=== PATIENT | female | born 2005 | race Caucasian/White ===

== ENCOUNTER 2025-03-12 15:19 | Inpatient (IN) | payer OTHER, SELFPAY ==
--- OUTSIDE RECORDS SUMMARY | 2025-03-12 18:34 | XMS_ITS | Clinical Summary ---
Author Organization [facility] Address [address] [place] [address] Care Team Providers Care [employer] Name Role Phone Unavailable Primary Care Provider Unavailabl e Source Comments [facility] [employer],non-owned Affiliates and Associated Physician Practices is amultiple site organization consisting of ambulatory clinics and hospital sitesin [place], [place], [place] and [place]. This disclosure is being madepursuant to the Care Everywhere program and may not contain all information available regarding this patient. 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 Gender Identity Not on file Sexual Orientation Not on file Plan of Treatment Health Maintenance Due Date Last Done Comments HIV SCREENING 01/28/2020 HPV VACCINE (1 - 3-dose series) 01/28/2020 CHLAMYDIA/GONORRHEA SCREENING 2021 MENINGOCOCCAL (Group B) VACC INE SHARED DECISION-MAKING (1 of 2 - Standard) 2021 HEPATITIS C SCREENING 01/23/2023 DTAP/TDAP/TD VACCINES (1 - Tdap) 01/28/2024 HEPATITIS B VACCINE (1 of 3 - 19+ 3-dose series) 01/28/2024 COVID-19 VACCINE (1 - 2023-2 5 season) 2024 DEPRESSION SCREENING 07/29/2024 INFLUENZA VACCINE (#1) 2025 ZOSTER VACCINE (1 of 2) 2055 HIB VACCINE Aged Out No longer eligi ble based on patient's age to complete this topic MENINGOCOCCAL GROUPS A/C/Y/W VACCINE Aged Out No longer eligible b ased on patient's age to complete this topic PNEUMOCOCCAL VACCINE Aged Out No long er eligible based on patient's age to complete this topic Insurance [employer]
--- OUTSIDE RECORDS SUMMARY | 2025-03-12 18:34 | XMS_ITS | Clinical Summary ---
Author Organization [facility] Address [address] [place] [address] Phone Care Team Providers Care Auditing Control Clerk Name Role Phone Unavailable Primary Care Provider Unavailabl e Allergies Active Allergy Reactions Criticality Noted Date Comments Penicillins Other (see Comments) Medications methylphenidate 10 MG PO TABS Take 10 mg by mouth 2 times daily. 1 tab every morning 1 tab at lunchtime Active albendazole 200 MG PO TABS 2 tablets PO x1, then repeat in 2 weeks. 4 Tab 0 3 Active Active Problems No known active problems Immunizations Immunization Administration Dates Next Due PUR DTAP UNDER 7 YRS IM 02/16/2013 PUR MMR SQ 02/16/2013 Family History Medical History Relation Name Comments Sudden Cardiac Neg Hx Sudden Syndrome Neg Hx Social History Tobacco Use Types Packs/Day Years Used Date Smoking Tobacco: Never Tobacco Cessation:Counseling Given: No Comments Unknown Sex and Gender Information Value Date Recorded Sex Assigned at Not on file Legal Sex Female 12:07 AM CDT Gender Identity Not on file Sexual Orientation Not on file Last Filed Vital Signs Vital Sign Reading Time Taken Comments Blood Pressure 80/50 02/16/2013 1:16 PM CDT Pulse 90 02/16/2013 1:16 PM CDT Temperature - - Respiratory Rate - - Oxygen Saturation - - Inhaled Oxygen Concentration - - Weight 28.1 kg (62 lb) 02/16/2013 1:16 PM CDT Height 129.5 cm (4' 3) 02/16/2013 1:16 PM CDT Body Mass Index 16.76 02/16/2013 1:16 PM CDT Plan of Treatment Health Maintenance Due Date Last Done Comments Hepatitis C Virus (HCV) Screening 2005 Human Papillomavirus (HPV) Immunization (1 - 3-dose series) 01/28/2020 Meningococcal B Immunization (1 of 2 - Standard) 2021 Hepatitis B Immunization (1 of 3 - 19+ 3-dose series) 01/28/2024 SARS-COV-2 Immunization (1 - 2023- season) 2024 Influenza Immunization (#1) 2025 Respiratory Syncytial Virus (RSV) Immunization (Adult) (1 - 1-dose 75+ series) 01/28/2080 DTaP/Tdap/Td Immunization Discontinued 02/16/2013 Measles Mumps Rubella (MMR) Immunization Discontinued 02/16/2013 Meningococcal Immunization (ACWY) Aged Out No longer eligible based on patient's age to complete this topic Pneumococcal Immunization Combined Aged Out No longer eligible based on patient's age to complete this topic Rotavirus Immunization Aged Out No lo nger eligible based on patient's age to complete this topic Insurance [employer]
--- OUTSIDE RECORDS SUMMARY | 2025-03-12 18:34 | XMS_ITS | Clinical Summary ---
Author Organization [facility] Address [address] [place] [id number] Care Team Providers Care Remarketing Rep Name Role Phone Sandy Wang MD Primary Care Provider Social History Tobacco Use Types Packs/Day Years Used Date Smoking Tobacco: Never Assessed Comments Unknown Sex and Gender Information Value Date Recorded Sex Assigned at Not on file Legal Sex Female 8:22 PM CDT Gender Identity Not on file Sexual Orientation Not on file Last Filed Vital Signs Vital Sign Reading Time Taken Comments Blood Pressure 90/50 03/16/2018 10:28 AM CDT Pulse 86 03/16/2018 10:28 AM CDT Temperature - - Respiratory Rate - - Oxygen Saturation - - Inhaled Oxygen Concentration - - Weight 47.2 kg (104 lb) 03/16/2018 10:28 AM CDT Height - - Body Mass Index - - Plan of Treatment Health Maintenance Due Date Last Done Comments Annual Physical 01/28/2008 HPV Vaccines (1 - 3-dose series) 01/28/2020 Meningococcal B Vaccine (1 o f 2 - Standard) 2021 Hepatitis C 2023 DTaP, Tdap and Td Vaccines ( 2 - Tdap) 01/28/2024 02/16/2013 Hepatitis B Vaccines (1 of 3 - 19+ 3-dose series) 01/28/2024 COVID-19 Vaccine ( - 2023-2 5 season) 2024 Meningococcal Vaccine Aged Out No mainor pati eligible based on patient's age to complete this topic Pneumococcal Vaccine: Pediat rics (0 to 5 Years) and At-Risk Patients (6 to 49 Years) Aged Out No longer eligi ble based on patient's age to complete this topic RSV Immunizations Under 20 Months Aged Out No longer eligible based on patient's age to complete this topic [facility] Care Teams Remarketing Rep Relationship Specialty Start Date End Date Sandy Wang MD [address] [place] [address] PCP - General FAMILY PRACTICE 03/18/20
--- NOTE | 2025-03-12 18:35 | PM.IMHP ---
H&P: HPI History of Present Illness Date/Time: 03/12/25 18:35 Chief Complaint: Labor at term Narrative: This is a 20-year-old 1 para 0 whose last menstrual period was unknown, EDC is 03/07/2025, confirmed by 9 week ultrasound who presents at 40 and 5 7th weeks gestation active labor she is positive for group B strep she passed her diabetic screen the has otherwise been uncomplicated Review of Systems Review of Systems: All systems reviewed & are unremarkable except as noted in HPI and below PMFSH Family History Family History Father Hypertension Mother Hypertension Social History Social History Substance use: never Spiritual care concerns: No Meds Home Medications and Allergies Home Medications ?Medication ?Instructions ?Recorded ?Confirmed ?Type vits no.130-ferrous fum 1 tablet PO DAILY 02/11/25 02/11/25 History 27 mg iron-folic acid 800 mcg tablet ( Vitamin) Allergies Allergy/AdvReac Type Severity Reaction Status Date / Time Penicillins Allergy Severe HIVES Verified 02/11/25 12:36 sulfamethoxazole Allergy Severe HIVES Verified 02/11/25 12:36 trimethoprim Allergy Severe HIVES Verified 02/11/25 12:36 Exam Const: General: cooperative, healthy appearing and comfortable Nutritional Appearance: average body habitus Orientation/consciousness: oriented to person, oriented to place and oriented to time HENMT: Head: normal to inspection Resp: Effort & Inspection: normal respiratory effort Cardio: Rate: regular rate Rhythm: regular rhythm Heart sounds: S1 normal heart sound present and S2 normal heart sound present GI: Inspection: normal to inspection (Soft gravid uterus) : Speculum Exam - Cervix: normal appearance of the cervix (Cervix 1.5/75/2. FHTs reassuring.) Assessment and Plan Assessment and plan (1) Term : Code(s): Z34.90 - Encounter for supervision of normal , unspecified, unspecified trimester Status: Acute (2) Positive testing for group B Streptococcus: Code(s): B95.1 - Streptococcus, group B, as the cause of diseases classified elsewhere Status: Acute Plan Spontaneous vaginal delivery expected. She is an epidural candidate. Were on low-dose Pitocin through the night and treat her group B strep
[2025-03-12 19:14] LABS: Hematocrit 38.5 % (37.0-47.0); Hemoglobin 12.8 g/dL (12.0-15.0); Immature Granulocyte Percent A 0.7 % (0-0.5); Lymphocytes Absolute Auto 2.35 K/mm3 (0.9-3.2); Mean Corpuscular HGB Conc 33.2 g/dl (32-36); Mean Corpuscular Hemoglobin 30.8 pg (26-34); Mean Corpuscular Volume 92.8 fl (80-100); Nucleated Red Blood Cells Absolute Auto 0.000 K/mm3 (0.0-0.012); Nucleated Red Blood Cells Perc 0.0 % (0.0-0.2); Platelet Count Result 231 k/mm3 (150-375); Red Blood Count 4.15 M/mm3 (4.2-5.4); White Blood Count 13.4 K/mm3 (4.5-10.0)
[2025-03-12 20:16] LABS: Syphilis IgG/IgM Antibody Non-Reactive (Nonreactive)
[2025-03-12 21:00] VITALS: TEMP 36.9
[2025-03-12] MEDS: LACTATED RINGERS 1,000 ML 125 ML IV CONT (21:02)
[2025-03-12] MEDS: CLINDAMYCIN 900 MG/D5W 50 ML 900 MG/50 ML PIGGYBACK 50 MG IVPB (21:04)
--- NOTE | 2025-03-12 21:19 | LDADM ---
This patient, Deana Galicia, was admitted to Labor/Delivery/Recovery 105 on 03/12/25 at 15:19. Plans for labor, pain management and were discussed with patient. Patient/family oriented to hospital policies and general routines including ID bracelet, bed and alarms, visiting hours, pain management, procedures, bathroom and other care routines, personal items, smoking policy, room service/diet and guest tray routines, security routines, and visiting hours. Patient/Family are encouraged to report perceived risks to care and to ask questions if they do not understand what they are told or what they should do. See OBIX for further documentation.
--- NOTE | 2025-03-12 22:39 | WPDANESEPP ---
Anes - Eval Pre Procedure Procedure: Labor epidural Date/Time: 03/12/25 22:39 Surgeon: Rupinder Zhou Preop Diagnosis: Abdominal pain with contractions Pre Op Diagnosis: IOL Patient Data Age: 20 Gender: F Height: Weight: Last Vital Signs Temp 98.4 F 03/12/25 21:00 O2 Del Method Room Air 03/12/25 21:16 Allergies Allergy/AdvReac Type Severity Reaction Status Date / Time Penicillins Allergy Severe HIVES Verified 02/11/25 12:36 sulfamethoxazole Allergy Severe HIVES Verified 02/11/25 12:36 trimethoprim Allergy Severe HIVES Verified 02/11/25 12:36 Home Medications ?Medication ?Instructions ?Recorded ?Confirmed ?Type vits no.130-ferrous fum 1 tablet PO DAILY 02/11/25 03/12/25 History 27 mg iron-folic acid 800 mcg tablet ( Vitamin) Laboratory Tests 03/12/25 19:09 WBC 13.4 H K/mm3 (4.5-10.0) RBC 4.15 L M/mm3 (4.2-5.4) Hgb 12.8 g/dL (12.0-15.0) Hct 38.5 % (37.0-47.0) MCV 92.8 fl (80-100) MCH 30.8 pg (26-34) MCHC 33.2 g/dl (32-36) RDW 12.4 % (11.5-14.5) Plt Count 231 k/mm3 (150-375) MPV 9.9 fl (7.4-10.4) Immature Gran % (Auto) 0.7 H % (0-0.5) Neut % (Auto) 73.2 H % (45.5-73.1) Lymph % (Auto) 17.6 L % (18.3-44.2) [place] % (Auto) 7.6 % (2.6-8.5) Eos % (Auto) 0.5 % (0-4.4) Baso % (Auto) 0.4 % (0.2-1.2) Lymph # (Auto) 2.35 K/mm3 (0.9-3.2) [place] # (Auto) 1.0 H K/mm3 (0.1-0.6) Eos # (Auto) 0.1 K/mm3 (0-0.3) Baso # (Auto) 0.1 K/mm3 (0.0-0.1) Abs Immat Gran (auto) 0.09 H K/mm3 (0.00-0.031) Absolute Neuts (auto) 9.8 H K/mm3 (1.3-6.7) Absolute Nucleated RBC 0.000 K/mm3 (0.0-0.012) Nucleated RBC % 0.0 % (0.0-0.2) Syphilis IgG/IgM Ab Non-reactive (Nonreactive) Blood Type A Positive Antibody Screen Negative : gestational age HCG: positive Patient hx anesthesia problems: none Family hx anesthesia problems: none Results Review: All pre-operative results and documents have been reviewed as part of the pre-operative evaluation. [facility] Past Medical History Medical History Anxiety Palpitation ADHD (attention deficit hyperactivity disorder) Term Family History Family History Father Hypertension Mother Hypertension Social History Social History Smoking status: Never smoker Second hand tobacco smoke exposure: No Substance use: never Lack of Transportation: No Lack of Food: Never True Current Housing: I Have Housing Concerned About Future Housing: No Difficulty Paying Gas/Electric Bills: No Difficulty Paying for Meds: No Currently Unemployed: No Education: Bachelor's Degree Difficulty w/ Childcare or Family Care: No Spiritual care concerns: No Exam Day of Procedure 03/12/25 22:39
[2025-03-12] MEDS: OXYTOCIN 30 UNITS/NS 500 ML 30 UNITS/500 ML BAG IV CONT (23:20)
[2025-03-12 23:23] VITALS: BP 131/88; PULSE 91
[2025-03-12 23:30] VITALS: BP 149/103; PULSE 82
[2025-03-12] MEDS: fentaNYL CITRATE INJ (*CRX) 100 MCG/2 ML VIAL 50 MCG IV PUSH (23:32)
[2025-03-12 23:46] VITALS: BP 132/116; PULSE 95
[2025-03-13] VITALS (271 sets, daily range): BP systolic 79–162; BP diastolic 47–108; PULSE 45–128; RESP 16–20; TEMP 36.1–36.7; O2SAT 81–100; BMI 39.3
[2025-03-13] MEDS: LACTATED RINGERS 1,000 ML 125 ML IV CONT ×2 (02:46→12:56)
[2025-03-13] MEDS: CLINDAMYCIN 900 MG/D5W 50 ML 900 MG/50 ML PIGGYBACK 50 MG IVPB ×2 (05:40→12:55)
[2025-03-13] MEDS: ONDANSETRON INJ 4 MG/2 ML VIAL IV PUSH ×2 (05:57→12:55)
--- NOTE | 2025-03-13 06:46 | P.PNOB_ITS ---
OB - PN: Subj Subjective Date/time seen: 03/13/25 06:46 Patient comments: no complaints and pain well controlled baby status: doing well OB - PN: Obj Data Labs 03/12/25 19:09 Labs: Laboratory Results - last 24 hr 03/12/25 19:09 WBC 13.4 H RBC 4.15 L Hgb 12.8 Hct 38.5 MCV 92.8 MCH 30.8 MCHC 33.2 RDW 12.4 Plt Count 231 MPV 9.9 Immature Gran % (Auto) 0.7 H Neut % (Auto) 73.2 H Lymph % (Auto) 17.6 L [place] % (Auto) 7.6 Eos % (Auto) 0.5 Baso % (Auto) 0.4 Lymph # (Auto) 2.35 [place] # (Auto) 1.0 H Eos # (Auto) 0.1 Baso # (Auto) 0.1 Abs Immat Gran (auto) 0.09 H Absolute Neuts (auto) 9.8 H Absolute Nucleated RBC 0.000 Nucleated RBC % 0.0 Syphilis IgG/IgM Ab Non-reactive Blood Type A Positive Antibody Screen Negative OB - PN A/P Assessment and Plan (1) Term : Code(s): Z34.90 - Encounter for supervision of normal , unspecified, unspecified trimester Status: Acute Plan routine care Time Spent With Patient Time: Total time spent is greater than 50% in coordination of care (as documented) at patient's floor/unit and/or counseling patient: Review of Systems 2 Review of Systems: All systems reviewed & are unremarkable except as noted in HPI and below Exam 2 Const: General: cooperative, healthy appearing and comfortable Nutritional Appearance: average body habitus Orientation/consciousness: oriented to person, oriented to place and oriented to time HENMT: Head: normal to inspection Resp: Effort & Inspection: normal respiratory effort Cardio: Rate: regular rate Rhythm: regular rhythm Heart sounds: S1 normal heart sound present and S2 normal heart sound present GI: Inspection: normal to inspection (Soft gravid uterus) : Speculum Exam - Cervix: normal appearance of the cervix (Cervix 1.5/75/2. FHTs reassuring.)
--- NOTE | 2025-03-13 06:51 | PM.OBPNLAB ---
Pain Control Date/time seen: 03/13/25 06:51 Pain control: tolerating well and epidural Pelvic Exam Dilation (cm): 4 Effacement (%): 90 station: -2 Amniotic membrane status: Leaking
--- NOTE | 2025-03-13 13:11 | PM.OBPNLAB ---
Pain Control Date/time seen: 03/13/25 13:11 Pain control: tolerating well and epidural Pelvic Exam Dilation (cm): 10 Effacement (%): 90 station: -2 Amniotic membrane status: Leaking Contractions Monitor mode: External
[2025-03-13] MEDS: OXYTOCIN 30 UNITS/NS 500 ML 30 UNITS/500 ML BAG 999 UNITS IV CONT (17:00)
--- NOTE | 2025-03-13 17:10 | PM.OBPRVD ---
OB - Vaginal Delivery Note Procedure Delivery date: 03/13/25 Induction method: None Delivery augmentation: Pitocin Delivery monitor: External FHT and External Uterine Route of delivery: Episiotomy description: None Laceration Description: None Specimen: No Quantitative Blood Loss (ml): 62 Anesthesia type: Epidural Disposition: Floor Complications: No immediate complications Narrative: Was admitted on the evening of 03/12/2025 in early labor at 40 and 5 7th weeks gestation. Artificial rupture membranes was performed in the a.m. when she was 4cm and she progressed an unremarkable 1st stage of labor had epidural anesthesia placed when she was complete she pushed delivered head spontaneously in the KEVIN position. Anterior posterior shoulder delivered spontaneously. Cord clamped x2 cut passed off the table given Apgars of 8 [id number]. Cord blood was drawn. Placenta delivered intact spontaneously. Twenty of Pitocin placed IV to help firm the uterus. After speculum all sidewalls no tears or lacerations were noted. QBL was 62cc. All sponge, needle, instrument counts correct. There were no immediate complications [place] Baby Date of : 03/13/25 Time of : 16:58 Gestational Age by Date: 40 gender: Female Weight (pounds): 9 Weight (ounces): 8 presentation: vertex position: Right Occiput Anterior Placenta delivery description: Spontaneous Cord Vessel Description: 3 Vessels score one minute: 8 score five minutes: 8
--- NOTE | 2025-03-13 17:13 | PM.DS ---
DS: Admitting Diagnosis Discharge Date 03/14/2025 Admitting Diagnosis Term /positive group B strep DS: Discharge Diagnosis Discharge Diagnosis (1) Positive testing for group B Streptococcus: Code(s): B95.1 - Streptococcus, group B, as the cause of diseases classified elsewhere Status: Acute (2) Term : Code(s): Z34.90 - Encounter for supervision of normal , unspecified, unspecified trimester Status: Acute DS: Summary Hospital Course Reason for hospitalization: Patient was admitted labor 815 was positive for group B strep prophylaxis with clindamycin spontaneous vaginal delivery on 03/13 25 at 4:58 p.m. Hospital Course: Patient's hospital course unremarkable. She remained afebrile. She was up, voiding without difficulty, eating regular diet, ambulating, and generally without complaints Time Spent with Patient Time attestation: Total time spent providing and/or coordinating discharge services: Exam Const: General: cooperative, healthy appearing and comfortable Nutritional Appearance: average body habitus Orientation/consciousness: oriented to person, oriented to place and oriented to time HENMT: Head: normal to inspection Resp: Effort & Inspection: normal respiratory effort Cardio: Rate: regular rate Rhythm: regular rhythm Heart sounds: S1 normal heart sound present and S2 normal heart sound present GI: Inspection: normal to inspection (Soft gravid uterus) : Speculum Exam - Cervix: normal appearance of the cervix (Cervix 1.5/75/2. FHTs reassuring.) DS: Data Data Completed and Pending Labs on day of discharge: Labs from last 24 hours 03/12/25 19:09 WBC 13.4 H RBC 4.15 L Hgb 12.8 Hct 38.5 MCV 92.8 MCH 30.8 MCHC 33.2 RDW 12.4 Plt Count 231 MPV 9.9 Immature Gran % (Auto) 0.7 H Neut % (Auto) 73.2 H Lymph % (Auto) 17.6 L [place] % (Auto) 7.6 Eos % (Auto) 0.5 Baso % (Auto) 0.4 Lymph # (Auto) 2.35 [place] # (Auto) 1.0 H Eos # (Auto) 0.1 Baso # (Auto) 0.1 Abs Immat Gran (auto) 0.09 H Absolute Neuts (auto) 9.8 H Absolute Nucleated RBC 0.000 Nucleated RBC % 0.0 Syphilis IgG/IgM Ab Non-reactive Blood Type A Positive Antibody Screen Negative Discharge Plan Discharge Attending physician on discharge: Max Valdez Discharging Clinician: Max Valdez Patient Disposition: Home Activity: may shower, no straining and pelvic rest Diet: heart healthy Wound Care Instructions: follow printed instructions Patient Instructions: Antibiotic Form Patient Language: Maltese Stand Alone Forms: General Discharge Information Follow-up/Referrals: Max Valdez MD [Physician] - Discharge Medications: Continued Vitamin 27 mg iron- 800 mcg tablet 1 tablet PO DAILY Date of admission: 03/12/25 15:19 Primary Care Provider: Tree,Mikaela Polanco Admitting Provider: Max Valdez Attending physician on admission: Max Valdez Condition: Stable
[2025-03-13] MEDS: OXYTOCIN 30 UNITS/NS 500 ML 30 UNITS/500 ML BAG 125 UNITS IV CONT (18:12)
[2025-03-13] MEDS: WITCH HAZEL 40 PADS 1 PAD TOPICAL (18:27)
[2025-03-13] MEDS: ALPRAZolam (*CRX) 0.25 MG TABLET PO (18:27)
[2025-03-13] MEDS: IBUPROFEN 600 MG TABLET PO (18:36)
[2025-03-13] MEDS: BENZOCAINE 20% AER SPR (*SP) 56 GM CAN 1 SPRAY TOPICAL (19:54)
--- NOTE | 2025-03-13 20:58 | OBPPTRN ---
03/13/25 at 1940 Patient transferred to post room #278. Support person and family present. Patient and family oriented to unit, room, information board, rooming in, admission packet. Patient verbalizes understanding.
[2025-03-13] MEDS: METHYLERGONOVINE MALEATE 0.2 MG TABLET PO (22:15)
[2025-03-14 04:10] VITALS: BP 140/88; PULSE 82; RESP 16; TEMP 37.2
[2025-03-14] MEDS: METHYLERGONOVINE MALEATE 0.2 MG TABLET PO (04:15)
[2025-03-14] MEDS: ACETAMINOPHEN 325 MG TABLET 650 MG PO (05:43)
[2025-03-14] MEDS: IBUPROFEN 600 MG TABLET PO (05:44)
[2025-03-14 05:50] LABS: Hematocrit 39.7 % (37.0-47.0); Hemoglobin 13.2 g/dL (12.0-15.0)
--- NOTE | 2025-03-14 07:47 | PM.OBPNVD ---
OB - PN: Subj Subjective Date/time seen: 03/14/25 07:47 Patient comments: no complaints and tolerating diet Narrative: baby doing well at [facility] OB - PN: Obj Data Labs 03/14/25 05:42 Labs: Laboratory Results - last 24 hr 03/14/25 05:42 Hgb 13.2 Hct 39.7 OB - PN A/P Assessment and Plan (1) Term : Code(s): Z34.90 - Encounter for supervision of normal , unspecified, unspecified trimester Status: Acute Time Spent With Patient Time: Total time spent is greater than 50% in coordination of care (as documented) at patient's floor/unit and/or counseling patient: Review of Systems Review of Systems: All systems reviewed & are unremarkable except as noted in HPI and below Exam Const: General: cooperative, healthy appearing and comfortable Nutritional Appearance: average body habitus Orientation/consciousness: oriented to person, oriented to place and oriented to time HENMT: Head: normal to inspection Resp: Effort & Inspection: normal respiratory effort Cardio: Rate: regular rate Rhythm: regular rhythm Heart sounds: S1 normal heart sound present and S2 normal heart sound present GI: Inspection: normal to inspection (Soft gravid uterus) : Speculum Exam - Cervix: normal appearance of the cervix (Cervix 1.5/75/2. FHTs reassuring.)
[2025-03-14 08:00] VITALS: BP 133/87; PULSE 72; RESP 20; TEMP 37
[2025-03-14] MEDS: DOCUSATE SODIUM 100 MG CAPSULE PO (09:17)
[2025-03-14] MEDS: MULTIVIT/MIN/PREN/FOL AC/IRON TABLET 1 TAB PO (09:17)
== END 2025-03-14 11:25 | disposition home or self-care (01) | DRG 560 ==
LOC: ANHLDR 03-13 17:15 → ANHOB2 03-13 20:22
PROVIDERS: Admitting Provider Obstetrics & Gynecology; PCP Family Medicine; Visit Provider Obstetrics & Gynecology
DX: O99.824 Streptococcus B carrier state complicating childbirth (principal); Z37.0 Single live birth; Z3A.40 40 weeks gestation of pregnancy
CPT/HCPCS: 36415; 85014; 85018; 85025; 86593; 86850; 86900; 86901; A9270; J2405; J2590; J2795; J3010; J7120